=== PATIENT | female | born 1970 | race Caucasian/White ===

== ENCOUNTER 2016-12-04 22:34 | Emergency (ER) | payer OTHER ==
[~2016-12-04] VITALS: Ht 162.6 cm; Wt 51.5 kg
[2016-12-04 22:43] VITALS: Ht 162.6 cm; Wt 51.5 kg
[2016-12-05] LABS: ADD SCAN DIFF NO
[2016-12-05 00:07] LABS: BASOPHILS % 0.3 % (0.0-2.0); EOSINOPHILS # 0.2 10^3/ul (0.0-0.5); EOSINOPHILS % 2.6 % (0.0-7.0); HEMATOCRIT 36.1 % (37.0-47.0); HEMOGLOBIN 12.1 g/dl (12.0-16.0); LYMPHOCYTES # 3.7 10^3/ul (0.8-2.9); LYMPHOCYTES % 52.7 % (15.0-51.0); MEAN CORPUSCULAR HEMOGLOBIN 29.8 pg (29.0-33.0); MEAN CORPUSCULAR HGB CONC 33.5 g/dl (32.0-37.0); MEAN CORPUSCULAR VOLUME 88.9 fl (82.0-101.0); MEAN PLATELET VOLUME 10.4 fl (7.4-10.4); MONOCYTES % 14.9 % (0.0-11.0); NEUTROPHIL # 2.1 10^3/ul (1.6-7.5); NEUTROPHILS % 29.4 % (39.0-77.0); PLATELET COUNT 266 10^3/UL (140-415); RED BLOOD COUNT 4.06 10^6/ul (4.20-5.40); RED CELL DISTRIBUTION WIDTH 13.7 % (11.5-14.5)
[2016-12-05 00:11] LABS: ADD UMIC NO; UR ASCORBIC ACID NEGATIVE (NEGATIVE); UR BILIRUBIN (Dip) NEGATIVE (NEGATIVE); UR BLOOD (Dip) NEGATIVE (NEGATIVE); UR CLARITY CLEAR (CLEAR); UR COLOR YELLOW (YELLOW); UR GLUCOSE (Dip) NEGATIVE (NEGATIVE); UR KETONES (Dip) NEGATIVE (NEGATIVE); UR LEUKOCYTE ESTERASE (Dip) NEGATIVE Leu/ul (NEGATIVE); UR NITRITE (Dip) NEGATIVE (NEGATIVE); UR SPECIFIC GRAVITY (Dip) 1.024 (1.003-1.030); UR TOTAL PROTEIN (Dip) NEGATIVE (NEGATIVE); UR UROBILINOGEN (Dip) NEGATIVE (NEGATIVE)
[2016-12-05 00:19] LABS: ALANINE AMINOTRANSFERASE 33 IU/L (13-69); ALBUMIN 4.6 g/dl (3.3-4.9); ALBUMIN/GLOBULIN RATIO 1.15; ALKALINE PHOSPHATASE 74 IU/L (42-121); ANION GAP 18 (8-16); ASPARTATE AMINO TRANSFERASE 25 IU/L (15-46); BILIRUBIN,INDIRECT 0.1 mg/dl (0-1.1); BILIRUBIN,TOTAL 0.1 mg/dl (0.2-1.3); BLOOD UREA NITROGEN 22 mg/dl (7-20); CALCIUM 9.6 mg/dl (8.4-10.2); CARBON DIOXIDE 29 mmol/L (21-31); CHLORIDE 99 mmol/L (97-110); GLUCOSE 100 mg/dl (70-220); POTASSIUM 4.1 mmol/L (3.5-5.1); SODIUM 142 mmol/L (135-144); TOTAL PROTEIN 8.6 g/dl (6.1-8.1)
--- NOTE | 2016-12-05 00:50 | ERD ---
ER Documentation Chief Complaint Date/Time DATE: 12/05/16 TIME: 00:46 Chief Complaint c/o rt breast pain, body pain, 2 weeks, denies n/v/d HPI This is a 46-year-old female presents to the ER with multiple complaints. Patient states she has had a sore throat for the last 2 weeks. She also complains of feeling weak and of weight loss. Patient lost 25 pounds in the last 6 months. Patient denies any headaches. She denies any nausea vomiting or diarrhea. Patient denies any breast pain. Patient denies any fevers or chills. ROS 12 point review of systems was done, all negative except per HPI. PMhx/Soc History of Surgery: Yes (hysterectomy) Anesthesia Reaction: No Hx Neurological Disorder: No Hx Respiratory Disorders: No Hx Cardiac Disorders: No Hx Psychiatric Problems: No Hx Miscellaneous Medical Probl: No Hx Alcohol Use: No Hx Substance Use: No Hx Tobacco Use: No Smoking Status: Never smoker Physical Exam Vitals Vital Signs Date Time Temp Pulse Resp B/P Pulse Ox O2 Delivery O2 Flow Rate FiO2 12/04/16 22:43 97.8 70 18 120/61 98 Physical Exam GENERAL: The patient is well-developed, well-nourished, in no acute distress. NECK: Cervical spine is non tender with no step off. Supple, no nuchal rigidity HEENT: Atraumatic. Pupils equal, round and reactive to light. Extraocular muscles are grossly intact. Conjunctivae pink, no discharge. Bilateral tympanic membranes are clear with no evidence of erythema, effusion or dulling of the light reflex. Tonsilar erythema with no exudates or uvular deviation. Clear rhinorrhea. RESPIRATORY: Clear to auscultation bilaterally. There are no rales, wheezes or rhonchi. HEART: Regular rate and rhythm. No murmurs, clicks, rubs or gallops. EXTREMITIES: No clubbing or cyanosis. Full range of motion. Grossly neurovascularly intact. NEUROLOGIC: Alert and oriented. Cranial nerves II through XII are intact. SKIN: There is no rash. The skin is warm and dry. Result Diagram: 12/04/16 0686 12/04/16 3946 Results 24 hrs Laboratory Tests Test 12/04/16 23:53 White Blood Count 7.010^3/ul Red Blood Count 4.0610^6/ul Hemoglobin 12.1g/dl Hematocrit 36.1% Mean Corpuscular Volume 88.9fl Mean Corpuscular Hemoglobin 29.8pg Mean Corpuscular Hemoglobin Concent 33.5g/dl Red Cell Distribution Width 13.7% Platelet Count 04535^3/UL Mean Platelet Volume 10.4fl Neutrophils % 29.4% Lymphocytes % 52.7% Monocytes % 14.9% Eosinophils % 2.6% Basophils % 0.3% Nucleated Red Blood Cells % 0.0/100WBC Neutrophils # 2.110^3/ul Lymphocytes # 3.710^3/ul Monocytes # 1.010^3/ul Eosinophils # 0.210^3/ul Basophils # 0.010^3/ul Nucleated Red Blood Cells # 0.010^3/ul Urine Color YELLOW Urine Clarity CLEAR Urine pH 5.0 Urine Specific [place] 1.024 Urine Ketones NEGATIVEmg/dL Urine Nitrite NEGATIVEmg/dL Urine Bilirubin NEGATIVEmg/dL Urine Urobilinogen NEGATIVEmg/dL Urine Leukocyte Esterase NEGATIVELeu/ul Urine Hemoglobin NEGATIVEmg/dL Urine Glucose NEGATIVEmg/dL Urine Total Protein NEGATIVEmg/dl Sodium Level 142mmol/L Potassium Level 4.1mmol/L Chloride Level 99mmol/L Carbon Dioxide Level 29mmol/L Anion Gap 18 Blood Urea Nitrogen 22mg/dl Creatinine 0.60mg/dl Glucose Level 100mg/dl Calcium Level 9.6mg/dl Total Bilirubin 0.1mg/dl Direct Bilirubin 0.00mg/dl Indirect Bilirubin 0.1mg/dl Aspartate Amino Transf (AST/SGOT) 25IU/L Alanine Aminotransferase (ALT/SGPT) 33IU/L Alkaline Phosphatase 74IU/L Total Protein 8.6g/dl Albumin 4.6g/dl Globulin 4.00g/dl Albumin/Globulin Ratio 1.15 Thyroid Stimulating Hormone (TSH) < 0.015MIU/L Procedures/MDM This is a 46-year-old female presents to the ER with multiple complaints. Patient does have erythematous tonsils this is likely allergic versus viral. Patient does not have any exudates, uvular deviation or kissing tonsils I doubt strep throat retropharyngeal abscess or peritonsillar abscess. In regards to patient's weight loss, myalgias and weakness at this time there is no evidence of anemia, infection, hypoglycemia, electrolyte abnormality. Patient does have a very low TSH, likely hyperthyroidism. At this time patient does not have any signs or symptoms of thyroid storm. She has denied any fever or chills, she is not confused and her vital signs are stable with no tachycardia or elevation in bp. Patient's blood work is normal, with no evidence of organ failure. Patient will need to be started on thyroid medication, but it should be started by her PCP for further testing including T3 T4. Patient is to follow-up with her primary care doctor within 1-2 days or return to ER sooner if symptoms worsen. My medical decision making shared with the patient he understands and agrees with plan. Departure Diagnosis: Primary Impression: Multiple complaints Condition: Stable RYAN CLIFTON Dec 05, 2016 00:49
[2016-12-05 00:52] LABS: THYROID STIMULATING HORMONE < 0.015 MIU/L (0.465-4.680)
[2016-12-05] MEDS ORDERED: LORA10CA PO (01:04)
[2016-12-05] MEDS ORDERED: FLUT9.9S NASAL (01:04)
[2016-12-05] MEDS ORDERED: TYL500 PO (01:05)
[2016-12-05] MEDS ORDERED: FAMO-18 PO (01:08)
[2016-12-05 01:45] VITALS: BP 120/61; RESP 18; TEMP 98.2
== END 2016-12-05 01:47 | disposition home or self-care (01) ==
LOC: FTE 22:34
DX: N64.4 Mastodynia (principal); J02.9 Acute pharyngitis, unspecified; R53.1 Weakness; R63.4 Abnormal weight loss
CPT/HCPCS: 80053; 81003; 84443; 85025; 99283

== ENCOUNTER → 2018-12-02 | Emergency (ER) | payer BC, OTHER ==
[~2018-12-02] VITALS: Ht 154.9 cm; Wt 51.3 kg
[~2018-12-02] MED LIST: FAMO-96 PO; FLUT9.9S NASAL; LORA10CA PO; TYL500 PO
[2018-12-02 10:42] VITALS: Ht 154.9 cm; Wt 51.3 kg
--- NOTE | 2018-12-02 15:25 | ERD ---
ER Documentation Chief Complaint Chief Complaint painful lump under rt breast x 2 weeks HPI 48-year-old female presenting with pain to her right breast. She states she feels a lump and had noticed that over the last 2 weeks. She has not use any medications and denies any drainage from her nipple. Denies any traumatic injuries. She has not followed up with her primary doctor and does not recall her last mammogram. Denies other medical problems. NKDA. Surgical history denies. Social history denies ROS All systems reviewed and are negative except as per history of present illness. Medications Home Meds Active Scripts Famotidine* (Pepcid*) 20 Mg Tablet, 20 MG PO BID for 14 Days, TAB Prov:ETIENNERYAN PEAN 12/05/16 Acetaminophen* (Tylenol*) 500 Mg Tab, 500 MG PO Q4H PRN for MILD PAIN LEVEL 1-3 for 3 Days, TAB Prov:RYAN CLIFTON C 12/05/16 Fluticasone Propionate (Flonase Allergy Relief) 9.9 Ml [place].susp, 1 SPRAY NASAL BID, #1 BOTTLE TO EACH NOSTRIL Prov:RYAN CLIFTON 12/05/16 Loratadine* (Claritin*) 10 Mg Capsule, 10 MG PO DAILY for 30 Days, CAP Prov:RYAN CLIFTON C 12/05/16 PMhx/Soc History of Surgery: Yes (hysterectomy) Anesthesia Reaction: No Hx Neurological Disorder: No Hx Respiratory Disorders: No Hx Cardiac Disorders: No Hx Psychiatric Problems: No Hx Miscellaneous Medical Probl: No Hx Alcohol Use: No Hx Substance Use: No Hx Tobacco Use: No FmHx Family History: No diabetes, No coronary disease, No other Physical Exam Vitals Vital Signs Date Temp Pulse Resp B/P (MAP) Pulse Ox O2 O2 Flow FiO2 Time Delivery Rate 12/02/18 98.1 66 18 112/69 98 10:42 (83) Physical Exam GENERAL: The patient is well-appearing, well-nourished, in no acute distress HEENT: Atraumatic. Conjunctivae are pink. Pupils equal, round, and reactive to light. There is no scleral icterus. Tympanic membranes clear bilaterally. Oropharynx clear. CHEST: Clear to auscultation bilaterally. There are no rales, wheezes or rhonchi. HEART: Regular rate and rhythm. No murmurs, clicks, rubs or gallops. SKIN: No erythema noted to the breast. No induration or fluctuance. Questionable mass felt to the lateral aspect of the right breast around 9:00 however may be underlying rib space as patient is very thin. Procedures/MDM MDM: 48-year-old female presents with breast pain. Patient exam is non- concerning. Patient is recommended to follow-up with primary care to obtain a mammogram. I do not feel blood work or imaging is indicated at this time. Patient only has a questionable mass noted with and I am not convinced as it is underlying her rib space which I believe is what patient is feeling. Patient is told if symptoms change or worsen to return immediately to the ER. All questions answered at discharge Departure Diagnosis: Primary Impression: Breast self examination education, encounter for Condition: Stable Patient Instructions: Breast Exam, Clinical Referrals: [facility] YOU HAVE RECEIVED A MEDICAL SCREENING EXAM AND THE RESULTS INDICATE THAT YOU DO NOT HAVE A CONDITION THAT REQUIRES URGENT TREATMENT IN THE EMERGENCY DEPARTMENT. FURTHER EVALUATION AND TREATMENT OF YOUR CONDITION CAN WAIT UNTIL YOU ARE SEEN IN YOUR DOCTORS OFFICE WITHIN THE NEXT 1-2 DAYS. IT IS YOUR RESPONSIBILITY TO MAKE AN APPOINTMENT FOR FOLOW-UP CARE. IF YOU HAVE A PRIMARY DOCTOR --you should call your primary doctor and schedule an appointment IF YOU DO NOT HAVE A PRIMARY DOCTOR YOU CAN CALL OUR PHYSICIAN REFERRAL HOTLINE AT IF YOU CAN NOT AFFORD TO SEE A PHYSICIAN YOU CAN CHOSE FROM THE FOLLOWING [facility] [address] [facility]. [facility] [address] [facility]. [facility] [address] [facility]. [facility] [address] [facility]. [facility] [place] [facility]. [facility]. [address] [place] [employer] OFFIC[place] [id number] [facility] [address] [place] [address] OFFICE FAX [address] [place] [address] [address] [place] [address] [place] [address] [address] [place], [facility] [address], [address] [place] [address] [address] [facility] [address] [facility], [place] [address] [facility] [address] [place] [address] [address] [facility] [id number] - [address] [facility], [place] [address] [address] MEIER, JULI [address] [facility] [address], [place] [address] DR ARGUETA [facility] [address] [place], [place] [id number] Additional Instructions: FOLLOW UP WITH YOUR PRIMARY CARE PHYSICIAN TOMORROW.Return to this facility if you are not improving as expected. CASEY HSU PA-C Dec 02, 2018 15:25
== END | disposition home or self-care (01) ==
LOC: FTE 10:36
DX: N64.4 Mastodynia (principal)
CPT/HCPCS: 99282